=== PATIENT | female | born 1985 | race Caucasian/White ===

== ENCOUNTER → 2016-12-21 | Outpatient (CLI) | payer OTHER | LOC: FIMAGING 11:21 | PROVIDERS: ATTEND Advanced Practice Midwife | DX: O44.21 Partial placenta previa NOS or without hemorrhage, first trimester (principal); Z3A.12 12 weeks gestation of pregnancy ==

== ENCOUNTER → 2017-02-07 | Outpatient (CLI) | payer OTHER | LOC: FIMAGING 11:34 | PROVIDERS: ATTEND Advanced Practice Midwife | DX: Z34.92 Encounter for supervision of normal pregnancy, unspecified, second trimester (principal); Z3A.19 19 weeks gestation of pregnancy ==

== ENCOUNTER → 2018-04-17 | Outpatient (CLI) | payer OTHER | LOC: FIMAGING 07:49 | PROVIDERS: ATTEND Advanced Practice Midwife | DX: O26.892 Other specified pregnancy related conditions, second trimester (principal); Z3A.19 19 weeks gestation of pregnancy ==